=== PATIENT | female | born 1940 | race American Indian/Alaskan Native ===

== ENCOUNTER 2018-05-16 10:06 | Observation (INO) | payer MEDICARE, OTHER ==
[2018-05-16 10:08] VITALS: BMI 26.6
--- NOTE | 2018-05-16 10:42 | ED PDOC ---
Arrival/HPI - General Chief Complaint: Chest Pain Time Seen by Provider: 05/16/18 10:17 Historian: Patient - History of Present Illness Narrative History of Present Illness (Text): 05/16/18 10:35 77 year old female, whose past medical history includes hypertension, hyperlipidemia, atrial fibrillation on Eliquis, heart murmur, and CABG 10 years ago, presents to the emergency department complaining non-radiating right sided chest pain since this morning. Patient reports 3 episodes of mild chest discomfort which lasted a few seconds at a time and resolved spontaneously. Patient notes she has not taken any of her medications today. She currently denies any pain at this time. Patient denies any fever, chills, sore throat, cough, shortness of breath, nausea, vomiting, diarrhea, abdominal pain, headache , dizziness, weakness, numbness or any other complaints. PMD: Dr. Quach Rn Documentation: Dr. James Time/Duration: Other (this morning) Symptom Course: Other (Currently asymptomatic) Context: Home Past Medical History - Provider Review Nursing Documentation Reviewed: Yes - Infectious Disease Hx of Infectious Diseases: None - Cardiac Hx Atrial Fibrillation: Yes Hx Hypertension: Yes Hx Pacemaker: No Other/Comment: open heart surgery - Neurological Hx Paralysis: No - Endocrine/Metabolic Hx Hypothyroidism: Yes - Hematological/Oncological Hx Blood Transfusions: Yes (2009) Hx Blood Transfusion Reaction: No - Musculoskeletal/Rheumatological Hx Falls: Yes - Psychiatric Hx Emotional Abuse: No Hx Physical Abuse: No Hx Substance Use: No - Surgical History Hx Open Heart Surgery: Yes - Anesthesia Hx Anesthesia: Yes Hx Anesthesia Reactions: No Hx Malignant Hyperthermia: No - Suicidal Assessment Feels Threatened In Home Enviroment: No Family/Social History - Physician Review Nursing Documentation Reviewed: Yes Family/Social History: Unknown Family HX Smoking Status: Never Smoked Hx Alcohol Use: No Hx Substance Use: No Allergies/Home Meds Allergies/Adverse Reactions: Allergies No Known Allergies Allergy (Verified 05/16/18 13:18) Home Medications: Home Meds Medication Instructions Recorded Confirmed Levothyroxine Sodium 75 mcg PO DAILY 08/13/12 05/16/18 [Levothyroxine] Atorvastatin [Lipitor] 80 mg PO DAILY 08/07/14 05/16/18 Apixaban [Eliquis] 1 tab PO BID 12/30/15 05/16/18 Diltiazem HCl [Diltiazem 24Hr ER] 180 mg PO DAILY 12/04/16 05/16/18 hydroCHLOROthiazide [Microzide] 12.5 mg PO DAILY 12/04/16 05/16/18 Review of Systems - Physician Review All systems were reviewed & negative as marked: Yes - Review of Systems Constitutional: absent: Fevers, Night Sweats ENT: absent: Sore Throat Respiratory: absent: SOB, Cough Cardiovascular: Chest Pain (Right side chest pain ) Gastrointestinal: absent: Abdominal Pain, Diarrhea, Nausea, Vomiting Genitourinary Female: absent: Urine Output Changes Neurological: absent: Headache, Dizziness, Focal Weakness Physical Exam Vital Signs Reviewed: Yes Vital Signs Temp Pulse Resp BP Pulse Ox 05/16/18 13:42 78 18 143/89 97 05/16/18 10:34 74 18 134/78 97 05/16/18 10:10 97.7 F 82 18 163/80 H 96 Temperature: Afebrile Blood Pressure: Normal Pulse: Regular Respiratory Rate: Normal Appearance: Positive for: Well-Appearing, Non-Toxic, Comfortable Pain Distress: None Mental Status: Positive for: Alert and Oriented X 3 - Systems Exam Head: Present: Atraumatic, Normocephalic Pupils: Present: PERRL Extroacular Muscles: Present: EOMI Conjunctiva: Present: Normal Mouth: Present: Moist Mucous Membranes Neck: Present: Normal Range of Motion Respiratory/Chest: Present: Clear to Auscultation, Good Air Exchange. No: Respiratory Distress, Accessory Muscle Use Cardiovascular: Present: Regular Rate and Rhythm, Normal S1, S2. No: Murmurs Abdomen: Present: Normal Bowel Sounds. No: Tenderness, Distention, Peritoneal Signs Back: Present: Normal Inspection Upper Extremity: Present: Normal Inspection. No: Cyanosis, Edema Lower Extremity: Present: Normal Inspection. No: Edema Neurological: Present: GCS=15, CN II-XII Intact, Speech Normal Skin: Present: Warm, Dry, Normal Color. No: Rashes Psychiatric: Present: Alert, Oriented x 3, Normal Insight, Normal Concentration Medical Decision Making ED Course and Treatment: 05/16/18 10:38 Impression: 77 year old female with right chest pain. Differential Diagnoses: Chest pain rule out ACS Plan: -- EKG -- Labs -- CBC -- Chest X-Ray -- Aspirin -- Reassess and disposition Progress Notes: 05/16/18 10:41 EKG shows atrial fibrillation at 70 BPM with left ventricular hypertrophy. No previous to compare. Interpreted by me. Report Date : 05/16/2018 10:59:28 Procedure: Chest xray Dictator : Malik Esparza MD IMPRESSION: No active disease. Patient's labs reviewed. Troponin negative. Case discussed with Dr. Marin who admits for Dr. Quach. Patient is comfortable with no chest pain. Will place on telemetry observation for chest pain r/o ACS. 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 - Lab Interpretations Lab Results: 05/16/18 10:40 05/16/18 10:40 Lab Results 05/16/18 10:40: Sodium 145, Potassium 4.2, Chloride 106, Carbon Dioxide 28, Anion Gap 16, BUN 30 H, Creatinine 1.9 H, Est GFR ( Amer) 31, Est GFR ( Non-Af Amer) 26, Random Glucose 117 H, Calcium 10.0, Magnesium 2.0, Total Bilirubin 0.4, AST 22, ALT 22, Alkaline Phosphatase 80, Lactate Dehydrogenase 444, Total Creatine Kinase 79, Troponin I < 0.01, Total Protein 8.0, Albumin 4.6 , Globulin 3.4, Albumin/Globulin Ratio 1.4 05/16/18 10:40: PT 16.3 H, INR 1.41 H, APTT 50.0 H 05/16/18 10:40: WBC 4.4 L, RBC 3.77, Hgb 10.3 L, Hct 31.6 L, MCV 83.8, MCH 27.3 , MCHC 32.6, RDW 15.0 H, Plt Count 214, MPV 9.6, Gran % 56.1, Lymph % (Auto) 37.5 H, Kane % (Auto) 5.9, Eos % (Auto) 0.5 L, Baso % (Auto) 0.0, Gran # 2.45, Lymph # (Auto) 1.6, Kane # (Auto) 0.3, Eos # (Auto) 0.0, Baso # (Auto) 0.00 I have reviewed the lab results: Yes - RAD Interpretation Radiology Orders: 05/16/18 10:37 CHEST PORTABLE [RAD] Stat - Medication Orders Current Medication Orders: Apixaban (Eliquis) 2.5 mg PO BID [facility] PRN Reason: Protocol Aspirin (Ecotrin) 81 mg PO DAILY [facility] Atorvastatin Calcium (Lipitor) 80 mg PO DIN [facility] Levothyroxine Sodium (Synthroid) 75 mcg PO DAILY [facility] Diltiazem Hcl [ Diltiazem 24hr Er] 180 Mg 180 mg PO DAILY [facility] Discontinued Medications Apixaban (Eliquis) 1 mg PO BID [facility] PRN Reason: Protocol Aspirin (Aspirin Chewable) 162 mg PO STAT STA Stop: 05/16/18 10:38 Last Admin: 05/16/18 11:30 Dose: 162 mg Diltiazem HCl (Cardizem Cd) 180 mg PO DAILY [facility] Non-Formulary Medication (Diltiazem Hcl [Diltiazem 24hr Er]) 180 mg PO DAILY [facility] Non-Formulary Medication (Diltiazem Hcl [Diltiazem 24hr Er]) 180 mg PO DAILY [facility] Diltiazem Hcl [ Diltiazem 24hr Er] 180 Mg 180 mg PO DAILY [facility] Non-Formulary Medication (Diltiazem Hcl [Diltiazem 24hr Er]) 180 mg PO DAILY [facility] Pneumococcal Polyvalent Vaccine (Pneumovax 23 Vaccine) 0.5 ml IM .ONCE ONE Stop: 05/16/18 14:39 Last Admin: 05/16/18 15:17 Dose: MAR Immunization Data Document 05/16/18 15:17 ML (Rec: 05/16/18 15:18 ML [id number]) Immunization Data Vaccine Information Sheet Given No Immunization Registry Document 05/16/18 15:17 ML (Rec: 05/16/18 15:18 ML [id number]) Immunization Registry Consent Date 05/16/18 - Scribe Statement The provider has reviewed the documentation as recorded by the [facility] training under Cathy Jauregui All medical record entries made by the Darynibdimitris were at my direction and personally dictated by me. I have reviewed the chart and agree that the record accurately reflects my personal performance of the history, physical exam, medical decision making, and the department course for this patient. I have also personally directed, reviewed, and agree with the discharge instructions and disposition. Disposition/Present on Arrival - Present on Arrival Any Indicators Present on Arrival: No History of DVT/PE: No History of Uncontrolled Diabetes: No Urinary Catheter: No History of Decub. Ulcer: No History Surgical Site Infection Following: None - Disposition Have Diagnosis and Disposition been Completed?: Yes Diagnosis: Chest pain Disposition: HOSPITALIZED Disposition Time: 12:49 Patient Plan: Observation Condition: FAIR
[2018-05-16 10:55] LABS: EOS % 0.5 % (1.5-5.0); GRAN # 2.45 (1.4-6.5); GRAN % 56.1 % (50.0-68.0); HEMOGLOBIN 10.3 g/dL (12.0-16.0); LYMPH # 1.6 (1.2-3.4); LYMPH % 37.5 % (22.0-35.0); MEAN CELL VOLUME 83.8 fl (80.0-105.0); MEAN CORPUSCULAR HEMOGLOBIN 27.3 pg (25.0-35.0); MEAN CORPUSCULAR HGB CONC 32.6 g/dl (31.0-37.0); MEAN PLATELET VOLUME 9.6 fl (7.0-11.0); MONO # 0.3 (0.1-0.6); MONO % 5.9 % (1.0-6.0); RBC 3.77 10^6/uL (3.5-6.1); WHITE BLOOD COUNT 4.4 10^3/ul (4.5-11.0)
[2018-05-16 11:01] LABS: ALB/GLOB RATIO 1.4 (1.1-1.8); ALBUMIN 4.6 g/dL (3.0-4.8); ALT/SGPT 22 U/L (7-56); AST/SGOT 22 U/L (14-36); BLOOD UREA NITROGEN 30 mg/dL (7-21); GFR AFRICAN-AMERICAN 31; GFR NON-AFRICAN AMERICAN 26
--- NOTE | 2018-05-16 11:01 | RAD ---
Date of service: 05/16/2018 HISTORY: chest pain COMPARISON: 08/13/2012 FINDINGS: LUNGS: No active pulmonary disease. PLEURA: No significant pleural effusion identified, no pneumothorax apparent. CARDIOVASCULAR: Normal. OSSEOUS STRUCTURES: Sternal wires. Mitral valve VISUALIZED UPPER ABDOMEN: Normal. OTHER FINDINGS: None. IMPRESSION: No active disease.
[2018-05-16 11:03] LABS: INR 1.41 (0.93-1.08); PROTHROMBIN TIME 16.3 SECONDS (9.4-12.5)
[2018-05-16 11:12] LABS: TROPONIN I < 0.01 ng/mL
[2018-05-16] MEDS ORDERED: Pneumococcal 23-Valent Vaccine IM ONE (14:38)
--- NOTE | 2018-05-16 14:40 | CP.PCM.HP ---
<Daniel Chávez - Last Filed: 05/16/18 14:26> History of Present Illness - History of Present Illness History of Present Illness: Subjective: CBC: Chest Discomfort HPI: Patient is a 77 year old female with a past medical history of CAD s/p CABG, hypertension, hyperlipidemia, hypothyrodism, and pulmonary hypertension who presented to the emergency room for evaluation and treatment of chest discomfort which began this morning with no specific provoking event. The chest discomfort originated and remained localized in the right parasternal region. Characterized the symptom has a pressure which remits with rest and exacerbates with activity. Patient cannot quantify severity of pressure. Denies associated dizziness, shortness of breath, sweating, palpitations, and nausea. At baseline the pateint states she is able to ambulate without overt difficultly. Able to walk/shop as needed without need to rest. Further denies fever, chills, abdominal pain, vomiting, diarrhea, constipation, and urinary symptoms. 12-point review of systems negative except as indicated in the HPI Past Medical History: CAD s/p CABG, hypertension, hyperlipidemia, hypothyrodism Past Surgical History: CABG 10 years ago Allergies: NKDA Social History: denies ETOH use, tobacco abuse, and illicit drug abuse Medications: eliquis 2.5mg BID, cardizem 180mg PO daily, Levothyroxine 0.075mg daily, Atorvastatin 80mg Daily, HCTZ 12.5mg daily Primary Care Physician: Dr. Quach Pharmacy: [facility] Physical Examination: - Constitutional Appears: No Acute Distress - Head Exam Head Exam: ATRAUMATIC, NORMAL INSPECTION, NORMOCEPHALIC - Eye Exam Eye Exam: EOMI, PERRL - Respiratory Exam Respiratory Exam: Clear to Auscultation Bilateral - Cardiovascular Exam Cardiovascular Exam: Irregularly Irregular, +S1, +S2, no rubs, no gallops - GI/Abdominal Exam GI & Abdominal Exam: Normal Bowel Sounds, Soft, NTTP, no guarding, no rebound tenderness - Extremities Exam Extremities exam: Negative for: calf tenderness, joint swelling, tenderness - Neurological Exam Neurological exam: Alert, Normal Gait, Oriented x3 - Psychiatry Psychiatry Exam: normal mood, normal affect - Skin Skin Exam: Dry, Intact, skin color change noted on right 1st digit Assessment and Plan: Patient is a 77 year old female with a past medical history of CAD s/p CABG, hypertension, hyperlipidemia, and hypothyrodism who was admitted for evaluation and treatment of chest pressure. In the ED the patient was given aspirin 124mg. EKG revealed an irregularly irregular, T wave inversions in I and AVL, rhythm HR 70bpm, Qtc 421ms. CXR revealed no active disease. Chest Pressure - rule out ACS - c/w aspirin - c/w home statin - c/w home diltiazem - cardiology consulted- appreciate recommendations Atral Fibrillation - rate control with cardizem - anticoagulate with home eliquis - CHADsVAsc score- 4, correlated to 4.8% risk of stroke per year - cardiology consulted- appreciate recommendations Hx of HTN - HR trended, reviewed, and appreciated, WNL- will continue to monitor closely - BPs trended, reviewed, and appreciated, WNL- will continue to monitor closely - continue home diltiazem and HTCZ (will hold today as patient admits to taking HCTZ at home today) with holding parameters Chronic Kidney Disease - creatinine and BUN trended, reviewed, and appreciated- trending up since 2011 ; 1.2 to 1.9;, 18 to 30 - no acute intervention at this time - will continue to monitor closely Hx of HPL - lipid profile pending Hx of Hypothyroidism - continue home levothyroxine - Thyroid profile ordered and pending Prophylaxis - DVT- eliquis - GI- not indicated at this time Patient seen, case discussed with, and plan approved by attending physician, Dr. Castellano. Present on Admission - Present on Admission Any Indicators Present on Admission: No Past Patient History - Infectious Disease Hx of Infectious Diseases: None - Past Social History Smoking Status: Never Smoked - CARDIAC Hx Atrial Fibrillation: Yes Hx Hypertension: Yes Hx Pacemaker: No Other/Comment: open heart surgery - NEUROLOGICAL Hx Paralysis: No - ENDOCRINE/METABOLIC Hx Hypothyroidism: Yes - HEMATOLOGICAL/ONCOLOGICAL Hx Blood Transfusions: Yes (2009) Hx Blood Transfusion Reaction: No - MUSCULOSKELETAL/RHEUMATOLOGICAL Hx Falls: Yes - PSYCHIATRIC Hx Emotional Abuse: No Hx Physical Abuse: No Hx Substance Use: No - SURGICAL HISTORY Hx Open Heart Surgery: Yes - ANESTHESIA Hx Anesthesia: Yes Hx Anesthesia Reactions: No Hx Malignant Hyperthermia: No Meds Home Medications: Home Medication List Medication Instructions Recorded Confirmed Type Apixaban [Eliquis] 2.5 mg PO BID tab 05/17/18 Rx Aspirin [Ecotrin] 81 mg PO DAILY tabec 05/17/18 Rx diltiaZEM CD [Cardizem CD] 120 mg PO DAILY cap 05/17/18 Rx Allergies/Adverse Reactions: Allergies Allergy/AdvReac Type Severity Reaction Status Date / Time No Known Allergies Allergy Verified 05/16/18 13:18 Results - Vital Signs Recent Vital Signs: Last Vital Signs Temp 97.7 F 05/16/18 10:10 Pulse 74 05/16/18 14:00 Resp 18 05/16/18 13:42 BP 143/89 05/16/18 13:42 Pulse Ox 97 05/16/18 13:42 - Labs Result Diagrams: 05/16/18 10:40 05/16/18 10:40 <Maurice Castellano - Last Filed: 05/17/18 14:12> Results - Vital Signs Recent Vital Signs: Last Vital Signs Temp 99.6 F 05/17/18 06:00 Pulse 74 05/17/18 09:46 Resp 20 05/17/18 06:00 BP 126/63 05/17/18 09:46 Pulse Ox 100 05/17/18 06:00 - Labs Result Diagrams: 05/17/18 06:00 05/17/18 06:00 Labs: Laboratory Results - last 24 hr 05/16/18 05/16/18 05/16/18 16:11 16:11 16:11 WBC RBC Hgb Hct MCV MCH MCHC RDW Plt Count MPV Gran % Lymph % (Auto) Pender % (Auto) Eos % (Auto) Baso % (Auto) Gran # Lymph # (Auto) Pender # (Auto) Eos # (Auto) Baso # (Auto) Sodium Potassium Chloride Carbon Dioxide Anion Gap BUN Creatinine Est GFR ( Amer) Est GFR (Non-Af Amer) Random Glucose Hemoglobin A1c 6.2 Calcium Phosphorus Magnesium Total Bilirubin AST ALT Alkaline Phosphatase Troponin I < 0.01 Total Protein Albumin Globulin Albumin/Globulin Ratio Triglycerides 76 Cholesterol 192 LDL Cholesterol Direct 93 HDL Cholesterol 63 H Free T4 1.15 TSH 3rd Generation 1.86 05/16/18 05/17/18 05/17/18 23:45 06:00 06:00 WBC 5.2 RBC 3.67 Hgb 9.8 L Hct 30.5 L MCV 83.1 MCH 26.7 MCHC 32.1 RDW 15.0 H Plt Count 218 MPV 9.3 Gran % 53.6 Lymph % (Auto) 41.2 H Pender % (Auto) 4.8 Eos % (Auto) 0.4 L Baso % (Auto) 0.0 Gran # 2.80 Lymph # (Auto) 2.2 Pender # (Auto) 0.3 Eos # (Auto) 0.0 Baso # (Auto) 0.00 Sodium 141 Potassium 4.1 Chloride 104 Carbon Dioxide 25 Anion Gap 16 BUN 34 H Creatinine 1.8 H Est GFR ( Amer) 33 Est GFR (Non-Af Amer) 27 Random Glucose 107 Hemoglobin A1c Calcium 9.7 Phosphorus 3.9 Magnesium 1.9 Total Bilirubin 0.4 AST 22 ALT 18 Alkaline Phosphatase 74 Troponin I < 0.01 Total Protein 7.7 Albumin 4.2 Globulin 3.6 Albumin/Globulin Ratio 1.2 Triglycerides Cholesterol LDL Cholesterol Direct HDL Cholesterol Free T4 TSH 3rd Generation Attending/Attestation - Attestation I have personally seen and examined this patient.: Yes I have fully participated in the care of the patient.: Yes I have reviewed all pertinent clinical information: Yes Notes (Text): 05/17/18 14:08 Attending note ; Patient seen and examined with resident . Patient is a 77 year old female with a past medical history of CAD s/p CABG, hypertension, hyperlipidemia, atrial fibrillation and hypothyroidism is admitted with chest pain. EKG shows atrial fibrillation with rate controlled nonspecific ST-T changes. Cardiac enzymes 1 negative. Currently patient is pain-free. Continue aspirin, Lipitor, Cardizem. Patient is on Eliquis for atrial fibrillation. Cardiac enzymes 3 ordered. Cardiology evaluation with Dr. James requested. Chronic kidney disease; creatinine is 1.9. Last creatinine 2017 was 1.8. Needs outpatient nephrology follow-up. Monitor patient closely. Upon discharge the patient will follow up with PMD . 05/17/18 14:12
[2018-05-16] MEDS ORDERED: DILTIAZEM HCL 180 MG PO SCH ×3 (15:00→15:35)
[2018-05-16] MEDS: Levothyroxine 75 MCG TAB PO SCH (16:17)
[2018-05-16 16:34] LABS: HDL CHOLESTEROL 63 mg/dL (29-60)
[2018-05-16 16:41] LABS: TROPONIN I < 0.01 ng/mL
[2018-05-16 16:44] LABS: LDL CHOLESTEROL 93 mg/dL (0-129)
[2018-05-16 17:18] LABS: FREE T4 1.15 ng/dL (0.78-2.19)
--- NOTE | 2018-05-16 19:23 | CARD ---
APPROVED REPORT Date of service: 05/16/2018 EKG Measurement Heart [id number] <Conclusion> A Fib. Left ventricular hypertrophy with repolarization abnormality Abnormal ECG
[2018-05-17 03:13] VITALS: RESP 20
--- NOTE | 2018-05-17 06:06 | CP.PCM.PN ---
Subjective - Date & Time of Evaluation Date of Evaluation: 05/17/18 Time of Evaluation: 05:53 - Subjective Subjective: Singh Siegel PGY1 -- Fishing [employer] Winding [employer] -- Medicine Progress Note Patient was evaluated at bedside this morning. Per nurse report, the patient was observed to be sleeping last night and was in no distress. Objective - Vital Signs/Intake and Output Vital Signs (last 24 hours): Temp Pulse Resp BP Pulse Ox 98.1 F 50 L 20 150/82 98 05/17/18 00:01 05/17/18 02:00 05/17/18 00:01 05/17/18 00:01 05/17/18 00:01 Intake and Output: 05/16/18 05/17/18 18:59 06:59 Intake Total 800 Output Total 740 Balance 60 - Medications Medications: Current Medications Apixaban (Eliquis) 2.5 mg PO BID [facility] PRN Reason: Protocol Last Admin: 05/16/18 17:05 Dose: 2.5 mg Aspirin (Ecotrin) 81 mg PO DAILY [facility] Atorvastatin Calcium (Lipitor) 80 mg PO DIN [facility] Last Admin: 05/16/18 16:17 Dose: 80 mg Levothyroxine Sodium (Synthroid) 75 mcg PO DAILY [facility] Last Admin: 05/16/18 16:17 Dose: 75 mcg Diltiazem Hcl [ Diltiazem 24hr Er] 180 Mg 180 mg PO DAILY [facility] Last Admin: 05/16/18 17:06 Dose: Not Given - Labs Labs: PT 16.3 SECONDS (9.4-12.5) H 05/16/18 10:40 INR 1.41 (0.93-1.08) H 05/16/18 10:40 APTT 50.0 Seconds (25.1-36.5) H 05/16/18 10:40 Assessment and Plan - Assessment and Plan (Free Text) Assessment: Patient is a 77-year-old female with a past medical history of coronary arterial disease status post CABG, hypertension, hyperlipidemia, and hypothyrodism who was admitted for evaluation and treatment of chest pressure. In the ED the patient was given aspirin 124mg. EKG revealed an irregularly irregular, T wave inversions in I and AVL, rhythm HR 70bpm, Qtc 421ms. CXR revealed no active disease. Chest Pressure - Rule out ACS - Trops negative x3 - Continue with aspirin - Continue with home statin - Continue home diltiazem - Cardiology consulted, appreciate recommendations Atrial Fibrillation - Rate control with cardizem - Anticoagulate with home eliquis - CHADsVAsc score- 4, correlated to 4.8% risk of stroke per year - Cardiology consulted- appreciate recommendations History of Hypertension - HR trended, reviewed, and appreciated, WNL- will continue to monitor closely - BPs trended, reviewed, and appreciated, WNL- will continue to monitor closely - Continue home diltiazem and HTCZ, with holding parameters Chronic Kidney Disease - Creatinine and BUN trended, reviewed, and appreciated- trending up since 2011 ; 1.2 to 1.9;, 18 to 30 - No acute intervention at this time - Will continue to monitor closely History of Hyperlipidemia - Lipid profile pending Hx of Hypothyroidism - Continue home levothyroxine - Thyroid 1.15 TSH 1.86 Prophylaxis - DVT- eliquis - GI- not indicated at this time Patient seen, case discussed with, and plan approved by Attending Physician, Dr. Castellano.
[2018-05-17 06:34] VITALS: TEMP 99.6; O2SAT 100
[2018-05-17 06:51] LABS: EOS % 0.4 % (1.5-5.0); GRAN # 2.8 (1.4-6.5); GRAN % 53.6 % (50.0-68.0); HEMOGLOBIN 9.8 g/dL (12.0-16.0); LYMPH # 2.2 (1.2-3.4); LYMPH % 41.2 % (22.0-35.0); MEAN CELL VOLUME 83.1 fl (80.0-105.0); MEAN CORPUSCULAR HEMOGLOBIN 26.7 pg (25.0-35.0); MEAN CORPUSCULAR HGB CONC 32.1 g/dl (31.0-37.0); MEAN PLATELET VOLUME 9.3 fl (7.0-11.0); MONO # 0.3 (0.1-0.6); MONO % 4.8 % (1.0-6.0); RBC 3.67 10^6/uL (3.5-6.1); WHITE BLOOD COUNT 5.2 10^3/ul (4.5-11.0)
[2018-05-17 07:07] LABS: ALB/GLOB RATIO 1.2 (1.1-1.8); ALBUMIN 4.2 g/dL (3.0-4.8); CALCIUM 9.7 mg/dL (8.4-10.5)
[2018-05-17] MEDS: Levothyroxine 75 MCG TAB PO SCH (09:47)
[2018-05-17 09:49] VITALS: BP 126/63; PULSE 74
--- NOTE | 2018-05-17 09:51 | CON ---
DATE: 05/17/2018 CARDIOLOGY CONSULTATION HISTORY: The patient is a 77-year-old woman with remote history of coronary artery bypass surgery who underwent cardiac catheterization last year, which showed an occluded vein graft to the RCA. She presents with chest pain, which is transient and atypical. It is completely resolved. The patient's past medical history includes hypertension, hypercholesterolemia and chronic atrial fibrillation, treated with Eliquis. Currently, the patient is asymptomatic, feeling well, ambulating and without symptoms. SOCIAL HISTORY: The patient does not smoke. REVIEW OF SYSTEMS: A 14-point review of systems is all negative. PHYSICAL EXAMINATION: VITAL SIGNS: Stable. Telemetry monitoring shows atrial fibrillation with some pauses up to 2.27 seconds, which is asymptomatic. NECK: Negative JVD. LUNGS: Without rales. HEART: Reveals S1, S2. EXTREMITIES: Without edema. EKG shows no acute changes. LABORATORY DATA: Troponins are negative. IMPRESSION: 1. Atypical chest pain. 2. No evidence for acute coronary syndrome. 3. History of coronary artery bypass surgery. 4. Multivessel coronary artery disease. 5. Chronic atrial fibrillation. 6. Occasional pauses. PLAN: Given these findings, we will decrease her Cardizem dose to 120 daily. We will resume her Eliquis. From a cardiac perspective, the patient can be discharged. We will arrange for an outpatient stress test. Luis James MD
[2018-05-17] MEDS ORDERED: DILTIAZEM HCL 180 MG PO SCH ×3 (10:00)
[2018-05-17] MEDS ORDERED: diltiaZEM 180 mg/24 Hours CD Cap PO SCH (10:00)
[2018-05-17] MEDS ORDERED: diltiaZEM 120 mg/24 Hours CD Cap PO SCH (10:00)
--- NOTE | 2018-05-17 14:37 | CP.PCM.DIS ---
<Singh Siegel - Last Filed: 05/17/18 15:30> Provider - Provider Date of Admission: 05/16/18 12:49 Attending physician: Maurice Castellano MD Primary care physician: Robyn Quach MD Consults: Cardiology: Dr. James Time Spent in preparation of Discharge (in minutes): 45 Diagnosis - Discharge Diagnosis (1) Chest pain Status: Acute Priority: Medium Hospital Course - Lab Results Lab Results: Most Recent Lab Values WBC 5.2 10^3/ul (4.5-11.0) 05/17/18 06:00 RBC 3.67 10^6/uL (3.5-6.1) 05/17/18 06:00 Hgb 9.8 g/dL (12.0-16.0) L 05/17/18 06:00 Hct 30.5 % (36.0-48.0) L 05/17/18 06:00 MCV 83.1 fl (80.0-105.0) 05/17/18 06:00 MCH 26.7 pg (25.0-35.0) 05/17/18 06:00 MCHC 32.1 g/dl (31.0-37.0) 05/17/18 06:00 RDW 15.0 % (11.5-14.5) H 05/17/18 06:00 Plt Count 218 10^3/uL (120.0-450.0) 05/17/18 06:00 MPV 9.3 fl (7.0-11.0) 05/17/18 06:00 Gran % 53.6 % (50.0-68.0) 05/17/18 06:00 Lymph % (Auto) 41.2 % (22.0-35.0) H 05/17/18 06:00 [place] % (Auto) 4.8 % (1.0-6.0) 05/17/18 06:00 Eos % (Auto) 0.4 % (1.5-5.0) L 05/17/18 06:00 Baso % (Auto) 0.0 % (0.0-3.0) 05/17/18 06:00 Gran # 2.80 (1.4-6.5) 05/17/18 06:00 Lymph # (Auto) 2.2 (1.2-3.4) 05/17/18 06:00 [place] # (Auto) 0.3 (0.1-0.6) 05/17/18 06:00 Eos # (Auto) 0.0 (0.0-0.7) 05/17/18 06:00 Baso # (Auto) 0.00 K/mm3 (0.0-2.0) 05/17/18 06:00 PT 16.3 SECONDS (9.4-12.5) H 05/16/18 10:40 INR 1.41 (0.93-1.08) H 05/16/18 10:40 APTT 50.0 Seconds (25.1-36.5) H 05/16/18 10:40 Sodium 141 mmol/L (132-148) 05/17/18 06:00 Potassium 4.1 mmol/L (3.6-5.0) 05/17/18 06:00 Chloride 104 mmol/L (98-107) 05/17/18 06:00 Carbon Dioxide 25 mmol/L (21-33) 05/17/18 06:00 Anion Gap 16 (10-20) 05/17/18 06:00 BUN 34 mg/dL (7-21) H 05/17/18 06:00 Creatinine 1.8 mg/dl (0.7-1.2) H 05/17/18 06:00 Est GFR ( Amer) 33 05/17/18 06:00 Est GFR (Non-Af Amer) 27 05/17/18 06:00 Random Glucose 107 mg/dL (70-110) 05/17/18 06:00 Hemoglobin A1c 6.2 % (4.2-6.5) 05/16/18 16:11 Calcium 9.7 mg/dL (8.4-10.5) 05/17/18 06:00 Phosphorus 3.9 mg/dL (2.5-4.5) 05/17/18 06:00 Magnesium 1.9 mg/dL (1.7-2.2) 05/17/18 06:00 Total Bilirubin 0.4 mg/dL (0.2-1.3) 05/17/18 06:00 AST 22 U/L (14-36) 05/17/18 06:00 ALT 18 U/L (7-56) 05/17/18 06:00 Alkaline Phosphatase 74 U/L (38-126) 05/17/18 06:00 Lactate Dehydrogenase 444 U/L (333-699) 05/16/18 10:40 Total Creatine Kinase 79 U/L (35-230) 05/16/18 10:40 Troponin I < 0.01 ng/mL 05/16/18 23:45 Total Protein 7.7 g/dL (5.8-8.3) 05/17/18 06:00 Albumin 4.2 g/dL (3.0-4.8) 05/17/18 06:00 Globulin 3.6 gm/dL 05/17/18 06:00 Albumin/Globulin Ratio 1.2 (1.1-1.8) 05/17/18 06:00 Triglycerides 76 mg/dL (35-160) 05/16/18 16:11 Cholesterol 192 mg/dL (130-200) 05/16/18 16:11 LDL Cholesterol Direct 93 mg/dL (0-129) 05/16/18 16:11 HDL Cholesterol 63 mg/dL (29-60) H 05/16/18 16:11 Free T4 1.15 ng/dL (0.78-2.19) 05/16/18 16:11 TSH 3rd Generation 1.86 mIU/mL (0.46-4.68) 05/16/18 16:11 - Hospital Course Hospital Course: Singh Siegel PGY1 -- Discharge Summary Hospital Course 77-year-old female with a past medical history of coronary arterial disease status post CABG, hypertension, hyperlipidemia, chronic kidney disease, hypothyrodism who presented to [facility] Emergency Department on with chest pressure. While in the emergency department, the patient was given aspirin 124mg. EKG was obtained and revealed an irregularly irregular rhythm with T wave inversions in I and AVL, HR 70bpm, Qtc 421ms. Chest x-ray was obtained; per report it revealed no active disease. Patient was subsequently admitted to telemetry for acute coronary syndrome rule-out. On the following morning, troponins were trended and were found to be within normal limits x3. The patient's CHADsVAsc Score was 4, which correlated to 4.8% risk of stroke per year. The patient's vitals were monitored, trended, and were within normal limits. Patient's heart rate was controlled with cardizem, and the patient was anticoagulated with home dose Eliquis. Cardiology was consulted , and recommended to decrease patient's home dose of cardizem down to 120mg daily. Per Cardiology report, the patient will be scheduled for an out-patient stress test. The patient denied chest pressure, shortness of breath, abdominal pain, palpitations, and/or dizziness. The patient also has a history of CKD. Creatinine and BUN were trending up since the patient's last visit in 2011. Patient also has history of hypothyroidism. Thyroid stimulating hormone was obtained and measured 1.86, and Thyroid hormone measured 1.15 The patient was continued on home levothyroxine. The patient has a history of HTN and was restarted on home-meds. On day 3, the patient was asymptomatic and hemodynamically stable. Patient was instructed to follow up with Cardiology as outpatient for a stress test, per cardiology recommendation. Patient agreed, and the patient was subsequently discharged to home in stable condition. Discharge Medications: Apixaban 2.5mg PO BID - Rx Aspirin 81mg PO Daily - Rx Cardizem 120mg PO Daily - Rx Microzide 12.5mg PO Daily Levothyroxine 75mcg PO Daily Patient seen, case discussed with, and plan approved by Attending Physician, Dr. Nona Siegel PGY1 - Date & Time of H&P Date of H&P: 05/16/18 Time of H&P: 14:26 Discharge Exam - Head Exam Head Exam: ATRAUMATIC, NORMAL INSPECTION, NORMOCEPHALIC - Eye Exam Eye Exam: EOMI, Normal appearance, PERRL Pupil Exam: NORMAL ACCOMODATION - ENT Exam ENT Exam: Mucous Membranes Moist - Neck Exam Neck exam: Full Rom, Normal Inspection - Respiratory Exam Respiratory Exam: NORMAL BREATHING PATTERN, UNREMARKABLE. absent: Respiratory Distress - Cardiovascular Exam Cardiovascular Exam: REGULAR RHYTHM, Systolic Murmur (harsh crescendo- decrescendo murmur appreciated along the right second intercostal space along the right sternal border. ) - GI/Abdominal Exam GI & Abdominal Exam: Normal Bowel Sounds, Soft, Unremarkable. absent: Tenderness - Extremities Exam Extremities exam: full ROM, normal inspection - Back Exam Back exam: NORMAL INSPECTION - Neurological Exam Neurological exam: Alert, CN II-XII Intact, Normal Gait, Oriented x3 - Psychiatric Exam Psychiatric exam: Normal Affect, Normal Mood - Skin Skin Exam: Dry, Intact, Normal Color, Warm Discharge Plan - Follow Up Plan Condition: FAIR Disposition: HOME/ ROUTINE Instructions: Heart Healthy Diet, Chest Pain (DC), Chest Pain (GEN) Additional Instructions: - Follow up with primary doctor in 3-5 days - Follow up with sales order coordinator, Dr. James, as scheduled for outpatient stress test - Resume home medications as prescribed - Proceed to ED if symptoms return Referrals: Robyn Quach MD [Primary Care Provider] - Luis James MD [Staff Provider] - <Maurice Castellano - Last Filed: 05/17/18 16:30> Provider - Provider Date of Admission: 05/16/18 12:49 Attending physician: Maurice Castellano MD Primary care physician: Robyn Quach MD Hospital Course - Lab Results Lab Results: Most Recent Lab Values WBC 5.2 10^3/ul (4.5-11.0) 05/17/18 06:00 RBC 3.67 10^6/uL (3.5-6.1) 05/17/18 06:00 Hgb 9.8 g/dL (12.0-16.0) L 05/17/18 06:00 Hct 30.5 % (36.0-48.0) L 05/17/18 06:00 MCV 83.1 fl (80.0-105.0) 05/17/18 06:00 MCH 26.7 pg (25.0-35.0) 05/17/18 06:00 MCHC 32.1 g/dl (31.0-37.0) 05/17/18 06:00 RDW 15.0 % (11.5-14.5) H 05/17/18 06:00 Plt Count 218 10^3/uL (120.0-450.0) 05/17/18 06:00 MPV 9.3 fl (7.0-11.0) 05/17/18 06:00 Gran % 53.6 % (50.0-68.0) 05/17/18 06:00 Lymph % (Auto) 41.2 % (22.0-35.0) H 05/17/18 06:00 [place] % (Auto) 4.8 % (1.0-6.0) 05/17/18 06:00 Eos % (Auto) 0.4 % (1.5-5.0) L 05/17/18 06:00 Baso % (Auto) 0.0 % (0.0-3.0) 05/17/18 06:00 Gran # 2.80 (1.4-6.5) 05/17/18 06:00 Lymph # (Auto) 2.2 (1.2-3.4) 05/17/18 06:00 [place] # (Auto) 0.3 (0.1-0.6) 05/17/18 06:00 Eos # (Auto) 0.0 (0.0-0.7) 05/17/18 06:00 Baso # (Auto) 0.00 K/mm3 (0.0-2.0) 05/17/18 06:00 PT 16.3 SECONDS (9.4-12.5) H 05/16/18 10:40 INR 1.41 (0.93-1.08) H 05/16/18 10:40 APTT 50.0 Seconds (25.1-36.5) H 05/16/18 10:40 Sodium 141 mmol/L (132-148) 05/17/18 06:00 Potassium 4.1 mmol/L (3.6-5.0) 05/17/18 06:00 Chloride 104 mmol/L (98-107) 05/17/18 06:00 Carbon Dioxide 25 mmol/L (21-33) 05/17/18 06:00 Anion Gap 16 (10-20) 05/17/18 06:00 BUN 34 mg/dL (7-21) H 05/17/18 06:00 Creatinine 1.8 mg/dl (0.7-1.2) H 05/17/18 06:00 Est GFR ( Amer) 33 05/17/18 06:00 Est GFR (Non-Af Amer) 27 05/17/18 06:00 Random Glucose 107 mg/dL (70-110) 05/17/18 06:00 Hemoglobin A1c 6.2 % (4.2-6.5) 05/16/18 16:11 Calcium 9.7 mg/dL (8.4-10.5) 05/17/18 06:00 Phosphorus 3.9 mg/dL (2.5-4.5) 05/17/18 06:00 Magnesium 1.9 mg/dL (1.7-2.2) 05/17/18 06:00 Total Bilirubin 0.4 mg/dL (0.2-1.3) 05/17/18 06:00 AST 22 U/L (14-36) 05/17/18 06:00 ALT 18 U/L (7-56) 05/17/18 06:00 Alkaline Phosphatase 74 U/L (38-126) 05/17/18 06:00 Lactate Dehydrogenase 444 U/L (333-699) 05/16/18 10:40 Total Creatine Kinase 79 U/L (35-230) 05/16/18 10:40 Troponin I < 0.01 ng/mL 05/16/18 23:45 Total Protein 7.7 g/dL (5.8-8.3) 05/17/18 06:00 Albumin 4.2 g/dL (3.0-4.8) 05/17/18 06:00 Globulin 3.6 gm/dL 05/17/18 06:00 Albumin/Globulin Ratio 1.2 (1.1-1.8) 05/17/18 06:00 Triglycerides 76 mg/dL (35-160) 05/16/18 16:11 Cholesterol 192 mg/dL (130-200) 05/16/18 16:11 LDL Cholesterol Direct 93 mg/dL (0-129) 05/16/18 16:11 HDL Cholesterol 63 mg/dL (29-60) H 05/16/18 16:11 Free T4 1.15 ng/dL (0.78-2.19) 05/16/18 16:11 TSH 3rd Generation 1.86 mIU/mL (0.46-4.68) 05/16/18 16:11 Attending/Attestation - Attestation I have personally seen and examined this patient.: Yes I have fully participated in the care of the patient.: Yes I have reviewed all pertinent clinical information, including history, physical exam and plan: Yes Notes (Text): 05/17/18 16:29 Attending note; Patient seen and examined with resident. patient denies any chest Pain, shortness of breath. Patient is a 77 year old female with a past medical history of CAD s/p CABG, hypertension, hyperlipidemia, atrial fibrillation and hypothyroidism is admitted with chest pain. EKG shows atrial fibrillation with rate controlled nonspecific ST-T changes. Cardiac enzymes 3 negative. Currently patient is pain-free. Continue aspirin, Lipitor, Cardizem. cardizem dosage reduced by cardiology. Patient is on Eliquis for atrial fibrillation. Cardiology evaluation with Dr. James appreciated. outpatient stress test arranged. Chronic kidney disease; creatinine is 1.8. Patient will be discharged home with close follow-up with cardiology Dr. James. Upon discharge the patient will follow up with PMD .
== END 2018-05-17 12:06 | disposition home or self-care (01) ==
LOC: ED 10:06 → ERH 12:49 → 2RNO 13:55
PROVIDERS: ADMIT Internal Medicine; ATTEND Internal Medicine
DX: R07.89 Other chest pain (principal); I12.9 Hypertensive chronic kidney disease with stage 1 through stage 4 chronic kidney disease, or unspecified chronic kidney disease; E78.00 Pure hypercholesterolemia, unspecified; I48.2 Chronic atrial fibrillation; E03.9 Hypothyroidism, unspecified; E78.5 Hyperlipidemia, unspecified; I25.10 Atherosclerotic heart disease of native coronary artery without angina pectoris; I27.20 Pulmonary hypertension, unspecified; N18.9 Chronic kidney disease, unspecified; Z79.01 Long term (current) use of anticoagulants; Z79.82 Long term (current) use of aspirin
CPT/HCPCS: 36415; 71045; 80053; 80061; 82550; 83036; 83615; 83735; 84100; 84439; 84443; 84484; 85025; 85610; 85730; 93005; 99283; G0378

== ENCOUNTER 2018-06-15 06:14 | Day surgery (SDC) | payer MEDICARE ==
[2018-06-08 10:57] VITALS: BMI 27.1
[2018-06-15] MEDS ORDERED: Lidocaine PF 2% (5 ml) Inj (For Cardiac Arrhy) ONE (06:48)
[2018-06-15] MEDS ORDERED: Iohexol 350mgl/ml 50 ML ONE (06:49)
[2018-06-15] MEDS ORDERED: Phenylephrine 10 mg/ml Inj ONE (06:49)
[2018-06-15] MEDS ORDERED: Iodixanol 320 MG/ML 200 ML BOTTLE IV ONE (06:49)
[2018-06-15] MEDS ORDERED: Iodixanol 320 MG/ML 100 ML BOTTLE IV ONE (06:49)
[2018-06-15 06:50] LABS: EOS % 0.6 % (1.5-5.0); GRAN # 2.62 (1.4-6.5); HEMOGLOBIN 10.1 g/dL (12.0-16.0); LYMPH % 40.2 % (22.0-35.0); MEAN CELL VOLUME 84.4 fl (80.0-105.0); MEAN CORPUSCULAR HEMOGLOBIN 27.2 pg (25.0-35.0); MEAN CORPUSCULAR HGB CONC 32.2 g/dl (31.0-37.0); MEAN PLATELET VOLUME 9.3 fl (7.0-11.0); MONO # 0.3 (0.1-0.6); MONO % 5.2 % (1.0-6.0); RBC 3.72 10^6/uL (3.5-6.1); RED CELL DISTRIBUTION WIDTH 15.6 % (11.5-14.5); WHITE BLOOD COUNT 4.9 10^3/ul (4.5-11.0)
[2018-06-15] MEDS ORDERED: Nitroglycerin 50mg in D5W 0 MG/0 ML BOTTLE IV ONE (06:50)
[2018-06-15 06:59] LABS: INR 1.02; PARTIAL THROMBOPLASTIN TIME 37.5 Seconds (25.1-36.5); PROTHROMBIN TIME 11.7 SECONDS (9.4-12.5)
[2018-06-15 07:06] VITALS: TEMP 98.2
[2018-06-15] MEDS ORDERED: Midazolam 2 MG/2 ML VIAL ONE ×2 (08:21→08:27)
[2018-06-15] MEDS ORDERED: Sodium Chloride 0.9% 1,000 ML IV SCH (09:15)
--- NOTE | 2018-06-15 09:39 | CARDCATH ---
Copied To: Luis James MD Attending MD: Luis James MD PROCEDURE DATE: 06/15/2018 HISTORY: The patient is a 77-year-old woman who presents with an abnormal stress test. PAST MEDICAL HISTORY: Includes history of coronary artery bypass surgery, mitral valve repair, hypertension and atrial fibrillation, treated with Eliquis. Because of this new defect in the stress test, cardiac catheterization was recommended. PROCEDURES: Left heart catheterization with coronary arteriography, left ventriculogram, saphenous vein graft angiogram, LAURENT angiogram, aortogram were performed. The right femoral artery was cannulated with a 6-Sloven[place] sheath. There were no complications. I performed moderate sedation, which included the presence of an independent trained observer that assisted in monitoring the patient's level of consciousness and physiologic status. After administration of fentanyl and Versed, my intra service time was 30 minutes. The findings on catheterization included a left ventricle that was visualized in the ROSS projection. In the ROSS projection, wall motion is within normal limits. The ejection fraction is approximately 60%. There is no mitral regurgitation. Her coronary anatomy revealed left main artery that was unremarkable. The LAD revealed diffuse atherosclerosis throughout its course with a 50% stenosis in the midportion. The diagonal vessel revealed diffuse atherosclerosis without critical lesions. The circumflex artery revealed diffuse atherosclerosis with a small obtuse marginal branch that revealed multiple 70-80% lesions. The RCA was occluded in its midportion. The saphenous vein graft to the RCA was found to be patent and provided good antegrade flow to the mid and distal RCA. The LAURENT was found to be occluded. Supra-aortic valvular injection revealed no aortic insufficiency. No other grafts were noted. Angio-Seal was used to close the femoral artery site. The patient tolerated the procedure well. In summary, the procedure revealed normal LV function with no mitral regurgitation. Occluded RCA, 50% stenosis in the mid LAD. Diffuse critical disease in a small obtuse marginal branch. Patent SVG to the RCA. Occluded LAURENT to the LAD. Given these findings, the patient's treatment will continue to be medical therapy. Each of her coronary vascular beds are perfused except for small obtuse marginal branch which is too small and too diseased to undergo angioplasty. Given these findings, we will restart her Eliquis in the morning and continue her cardiac risk reduction program. Luis James MD [facility] # [phone]
[2018-06-15 10:17] VITALS: RESP 20
[2018-06-15] MEDS ORDERED: cefTRIAXone (Rocephin) 1 gm Inj ONE (11:16)
[2018-06-15 13:49] VITALS: BP 163/58; PULSE 76; O2SAT 97
--- NOTE | 2018-06-15 23:30 | CARD ---
APPROVED REPORT Date of service: 06/15/2018 EKG Measurement Heart [id number] <Conclusion> Atrial fibrillation with slow ventricular response Voltage criteria for left ventricular hypertrophy ST & T wave abnormality, consider lateral ischemia or digitalis effect Abnormal ECG
== END 2018-06-15 14:45 | disposition home or self-care (01) ==
LOC: CATH 06:14
PROVIDERS: ATTEND Internal Medicine Cardiovascular Disease
DX: I25.10 Atherosclerotic heart disease of native coronary artery without angina pectoris (principal); T82.857A Stenosis of other cardiac prosthetic devices, implants and grafts, initial encounter; Y83.2 Surgical operation with anastomosis, bypass or graft as the cause of abnormal reaction of the patient, or of later complication, without mention of misadventure at the time of the procedure; I10 Essential (primary) hypertension; I48.91 Unspecified atrial fibrillation
CPT/HCPCS: 36415; 80048; 85025; 85610; 85730; 86850; 86900; 93005; 93459; 93567; 99152; C1760; C1769; C2629; J0696; J1644; J2250; J3010; J7030; Q9966

== ENCOUNTER 2018-06-27 01:32 | Emergency (ER) | payer MEDICARE ==
[2018-06-27 01:32] VITALS: BMI 27.1
--- NOTE | 2018-06-27 01:40 | ED PDOC ---
Arrival/HPI - General Historian: Patient - History of Present Illness Time/Duration: 4-6 hours Symptom Onset: Gradual Symptom Course: Unchanged <Beau Pace - Last Filed: 06/27/18 04:12> <[email or web address] - Last Filed: 06/27/18 04:45> - General Time Seen by Provider: 06/27/18 01:38 - History of Present Illness Narrative History of Present Illness (Text): 06/27/18 01:39 77 year old female, whose past medical history includes hypertension, hyperlipidemia, atrial fibrillation on Eliquis, heart murmur, and CABG 10 years ago, presents to the emergency department complaining of weakness and dizziness. Patient states that at 11:30 PM she was getting ready for bed when she smelled gas in her house. She called the gas company and they assured her that there was no gas leak. Patient states that after the incident she felt weak and dizzy. Patient came to the ED today to make sure that her heart is fine given her cardiac history. Patient denies any fever, chills, sore throat, cough, chest pain, nausea, vomiting, diarrhea, abdominal pain, headache, dizziness, weakness, numbness or any other complaints. PMD: Dr. [place] Salon Stylist: Dr. James (Beau Pace) Past Medical History - Provider Review Nursing Documentation Reviewed: Yes - Travel History Have you recently traveled outside [place] w/in the past 3 mons?: No - Infectious Disease Hx of Infectious Diseases: None - Cardiac Hx Pacemaker: No - Pulmonary Hx Respiratory Disorders: No - Neurological Hx Paralysis: No - HEENT Hx HEENT Disorder: No - Renal Hx Renal Disorder: No - Endocrine/Metabolic Hx Hypothyroidism: Yes - Hematological/Oncological Hx Blood Transfusions: Yes (2009) Hx Blood Transfusion Reaction: No - Integumentary Hx Dermatological Disorder: No - Musculoskeletal/Rheumatological Hx Musculoskeletal Disorders: Yes - Gastrointestinal Hx Gastrointestinal Disorders: Yes Hx Gall Bladder Disease: Yes (gallstones) - Genitourinary/Gynecological Hx Genitourinary Disorders: No - Psychiatric Hx Emotional Abuse: No Hx Physical Abuse: No Hx Substance Use: No - Surgical History Hx Coronary Artery Bypass Graft: Yes - Anesthesia Hx Anesthesia Reactions: No Hx Malignant Hyperthermia: No - Suicidal Assessment Feels Threatened In Home Enviroment: No <Beau Pace - Last Filed: 06/27/18 04:12> Family/Social History - Physician Review Nursing Documentation Reviewed: Yes Family/Social History: No Known Family HX Smoking Status: Never Smoked Hx Alcohol Use: No Hx Substance Use: No <Beau Pace - Last Filed: 06/27/18 04:12> Allergies/Home Meds <Beau Pace - Last Filed: 06/27/18 04:12> <Thelma Delgado - Last Filed: 06/27/18 04:45> Allergies/Adverse Reactions: Allergies No Known Allergies Allergy (Verified 05/16/18 13:18) Home Medications: Home Meds Medication Instructions Recorded Confirmed Levothyroxine Sodium 75 mcg PO DAILY 08/13/12 06/27/18 Atorvastatin [Lipitor] 80 mg PO DAILY 08/07/14 06/27/18 hydroCHLOROthiazide [Microzide] 12.5 mg PO DAILY 12/04/16 06/27/18 Review of Systems - Physician Review All systems were reviewed & negative as marked: Yes - Review of Systems Constitutional: Fatigue. absent: Fevers, Night Sweats Eyes: Normal. absent: Vision Changes ENT: Normal Respiratory: SOB. absent: Cough, Wheezing Cardiovascular: Normal. absent: Chest Pain, Palpitations, Calf Pain Gastrointestinal: Normal. absent: Abdominal Pain, Constipation, Diarrhea, Nausea, Vomiting Genitourinary Female: Normal. absent: Dysuria, Frequency Musculoskeletal: Normal Skin: Normal. absent: Rash Neurological: Dizziness. absent: Headache, Focal Weakness, Gait Changes, Speech Changes, Facial Droop Psychiatric: Normal. absent: Anxiety, Depression <Beau Pace - Last Filed: 06/27/18 04:12> Physical Exam Vital Signs Reviewed: Yes Temperature: Afebrile Blood Pressure: Normal Pulse: Bradycardic Respiratory Rate: Normal Appearance: Positive for: Well-Appearing, Non-Toxic, Comfortable Pain Distress: None Mental Status: Positive for: Alert and Oriented X 3 - Systems Exam Head: Present: Atraumatic, Normocephalic Pupils: Present: PERRL Extroacular Muscles: Present: EOMI Conjunctiva: Present: Normal Mouth: Present: Moist Mucous Membranes Respiratory/Chest: Present: Clear to Auscultation, Good Air Exchange. No: Respiratory Distress, Accessory Muscle Use, Wheezes, Rales, Rhonchi Cardiovascular: Present: Normal S1, S2, Bradycardic. No: Murmurs, Rub, Gallop Abdomen: Present: Normal Bowel Sounds. No: Tenderness, Distention, Peritoneal Signs Upper Extremity: Present: Normal Inspection. No: Cyanosis, Edema Lower Extremity: Present: Normal Inspection. No: Edema Neurological: Present: GCS=15, CN II-XII Intact, Speech Normal, Motor Func Grossly Intact, Normal Sensory Function, Gait Normal Skin: Present: Warm, Dry, Normal Color. No: Rashes Psychiatric: Present: Alert, Oriented x 3, Normal Insight, Normal Concentration <Beau Pace - Last Filed: 06/27/18 04:12> Vital Signs Temp Pulse Resp BP Pulse Ox 06/27/18 04:07 61 18 137/68 100 06/27/18 01:51 98.8 F 54 L 18 146/59 L 97 Medical Decision Making <Beau Pace - Last Filed: 06/27/18 04:12> - Lab Interpretations I have reviewed the lab results: Yes - EKG Interpretation Interpreted by ED Physician: Yes Type: 12 lead EKG <Thelma Delgado - Last Filed: 06/27/18 04:45> ED Course and Treatment: 06/27/18 02:04 Impression: Patient is a 77 year old female presenting to the ED with weakness and dizziness. Differential Diagnosis included but are not limited to: - Dehydration - BPPV Plan: -- EKG -- CBC -- CMP -- Troponin Progress Notes: 06/27/18 03:16 - Troponin: <0.01 - EKG: Junctional rhythm, rate: 54 bpm 06/27/18 03:46 - Patient reassessed, patient states she no longer feels dizzy. She feels tired and sleepy. Patient advised to be admitted for observation for her bradycardia and weakness. Patient wants to go home instead. Patient was given instructions and understands to return to the emergency room for worsening or newly concerning symptoms. Patient has a follow up appointment with her edge inker uppers, Dr. James. Patient is stable for discharge. (Beau Pace) Patient Seen With Resident: In agreement with resident note which contains more details about the patient. Patient was seen and evaluated with resident. Came up with plan and treatment together. 77 year old female presents complaining of weakness and dizziness that began few hours prior to arrival. Plan: -- Labs -- EKG -- Reassess and disposition. (Thelma Delgado) - Lab Interpretations Lab Results: 06/27/18 02:11 06/27/18 02:11 Lab Results 06/27/18 02:11: Sodium 146, Potassium 4.0, Chloride 109 H, Carbon Dioxide 26, Anion Gap 15, BUN 33 H, Creatinine 2.0 H, Est GFR ( Amer) 29, Est GFR ( Non-Af Amer) 24, Random Glucose 169 H, Calcium 9.3, Troponin I < 0.01 06/27/18 02:11: WBC 5.4, RBC 3.61, Hgb 10.0 L, Hct 30.6 L, MCV 84.8, MCH 27.7, MCHC 32.7, RDW 15.4 H, Plt Count 217, MPV 9.6, Gran % 66.9, Lymph % (Auto) 26.8 , [place] % (Auto) 5.9, Eos % (Auto) 0.4 L, Baso % (Auto) 0.0, Gran # 3.60, Lymph # (Auto) 1.4, [place] # (Auto) 0.3, Eos # (Auto) 0.0, Baso # (Auto) 0.00 <Beau Pace - Last Filed: 06/27/18 04:12> - PA / SPA MANAGER / Resident Statement MD/ has reviewed & agrees with the documentation as recorded. MD/ has examined the patient and agrees with the treatment plan. - Scribe Statement The provider has reviewed the documentation as recorded by the Scribe <Thelma Delgado - Last Filed: 06/27/18 04:45> - Scribe Statement Gerson Marrero Provider Scribe Attestation: All medical record entries made by the Scribe were at my direction and personally dictated by me. I have reviewed the chart and agree that the record accurately reflects my personal performance of the history, physical exam, medical decision making, and the department course for this patient. I have also personally directed, reviewed, and agree with the discharge instructions and disposition. (Thelma Delgado) Disposition/Present on Arrival - Present on Arrival Any Indicators Present on Arrival: No History of DVT/PE: No History of Uncontrolled Diabetes: No Urinary Catheter: No History of Decub. Ulcer: No History Surgical Site Infection Following: None - Disposition Have Diagnosis and Disposition been Completed?: Yes Disposition Time: 03:42 Patient Plan: Discharge <Beau Pace - Last Filed: 06/27/18 04:12> <Thelma Delgado - Last Filed: 06/27/18 04:45> - Disposition Diagnosis: Weakness, Dizziness Disposition: HOME/ ROUTINE Condition: IMPROVED Discharge Instructions (ExitCare): Weakness (ED) Additional Instructions: VERENICE FINCH, thank you for letting us take care of you today. Your provider was Thelma Delgado MD and you were treated for dizziness and weakness. The emergency medical care you received today was directed at your acute symptoms. If you were prescribed any medication, please fill it and take as directed. It may take several days for your symptoms to resolve. Return to the Emergency Department if your symptoms worsen, do not improve, or if you have any other problems. Please contact your doctor or call one of the physicians/clinics you have been referred to that are listed on the Patient Visit Information form that is included in your discharge packet. Bring any paperwork you were given at discharge with you along with any medications you are taking to your follow up visit. Our treatment cannot replace ongoing medical care by a primary care provider outside of the emergency department. Thank you for allowing the Critical access hospital team to be part of your care today. If you had an X-Ray or CT scan: A Radiologist will review the ED reading if any change in treatment is needed we will contact you. If you had a blood, urine, or wound culture: It will take several days for the results, if any change in treatment is needed we will contact you. If you had an STI test: It will take 48 hours for the results. Please call after 1 week if you have not heard back. Referrals: Robyn Quach MD [Primary Care Provider] - Follow up with primary Luis James MD [Staff Provider] - Follow up with primary
[2018-06-27 01:56] VITALS: RESP 18; TEMP 98.8
[2018-06-27 02:30] LABS: BLOOD UREA NITROGEN 33 mg/dL (7-21); CALCIUM 9.3 mg/dL (8.4-10.5); GFR NON-AFRICAN AMERICAN 24
[2018-06-27 02:37] LABS: EOS % 0.4 % (1.5-5.0); GRAN # 3.6 (1.4-6.5); GRAN % 66.9 % (50.0-68.0); LYMPH # 1.4 (1.2-3.4); LYMPH % 26.8 % (22.0-35.0); MEAN CELL VOLUME 84.8 fl (80.0-105.0); MEAN CORPUSCULAR HEMOGLOBIN 27.7 pg (25.0-35.0); MEAN CORPUSCULAR HGB CONC 32.7 g/dl (31.0-37.0); MEAN PLATELET VOLUME 9.6 fl (7.0-11.0); MONO # 0.3 (0.1-0.6); MONO % 5.9 % (1.0-6.0); RBC 3.61 10^6/uL (3.5-6.1); RED CELL DISTRIBUTION WIDTH 15.4 % (11.5-14.5); WHITE BLOOD COUNT 5.4 10^3/ul (4.5-11.0)
[2018-06-27 02:41] LABS: TROPONIN I < 0.01 ng/mL
[2018-06-27 04:10] VITALS: BP 137/68; PULSE 61; O2SAT 100
--- NOTE | 2018-06-27 22:09 | CARD ---
APPROVED REPORT Date of service: 06/27/2018 EKG Measurement Heart [id number] <Conclusion> Junctional rhythm Left ventricular hypertrophy with repolarization abnormality Abnormal ECG
== END 2018-06-27 04:07 | disposition home or self-care (01) ==
LOC: ED 01:32
DX: R53.1 Weakness (principal); R42 Dizziness and giddiness; E03.9 Hypothyroidism, unspecified; E78.5 Hyperlipidemia, unspecified; I10 Essential (primary) hypertension; I48.91 Unspecified atrial fibrillation; Z79.01 Long term (current) use of anticoagulants

== ENCOUNTER 2018-08-29 09:54 | Emergency (ER) | payer MEDICARE, OTHER ==
[2018-08-29 10:04] VITALS: RESP 18; BMI 28.3
--- NOTE | 2018-08-29 10:47 | ED PDOC ---
Arrival/HPI - General Chief Complaint: Palpitations Time Seen by Provider: 08/29/18 10:18 Historian: Patient - History of Present Illness Narrative History of Present Illness (Text): 08/29/18 10:48 78 year old female with a past medical history of A-fib on Eliquis, CAD s/p CABG, valve replacement, hypertension, hyperlipidemia, hypothyrodism, and pulmonary hypertension, presents to the Emergency department for palpitations 2 weeks. Patient states she has been having palpitations in her chest, which she has had before time to time but that for the last 2 weeks, the palpitations seem to be present in her left ear as well and states "it's like a heart beat in there". Patient reports visiting an ENT doctor for the presented symptoms, who cleaned and flushed out the left ear with mild improvement in symptoms but they persist. Patient denies any ear pain or chest pain. Patient denies headache, numbness/tingling, facial droop, vision changes, taste sensation change, recent massage/chiropractor/roller coaster/strong cough/sneeze, or any other acute neurological deficits. Patient denies any neck or back pain. Patient denies any other associated somatic complaints. PMD: Dr. Quach [employer] Machine Operator: Dr. James Time/Duration: 1 week Symptom Onset: Gradual Symptom Course: Unchanged Activities at Onset: Light Context: Home Past Medical History - Provider Review Nursing Documentation Reviewed: Yes - Infectious Disease Hx of Infectious Diseases: None - Reproductive Menopause: Yes - Cardiac Hx Pacemaker: No - Pulmonary Hx Respiratory Disorders: No - Neurological Hx Paralysis: No - HEENT Hx HEENT Disorder: No - Renal Hx Renal Disorder: No - Endocrine/Metabolic Hx Hypothyroidism: Yes - Hematological/Oncological Hx Blood Transfusions: Yes (2009) Hx Blood Transfusion Reaction: No - Integumentary Hx Dermatological Disorder: No - Musculoskeletal/Rheumatological Hx Musculoskeletal Disorders: Yes - Gastrointestinal Hx Gastrointestinal Disorders: Yes Hx Gall Bladder Disease: Yes (gallstones) - Genitourinary/Gynecological Hx Genitourinary Disorders: No - Psychiatric Hx Emotional Abuse: No Hx Physical Abuse: No Hx Substance Use: No - Surgical History Hx Coronary Artery Bypass Graft: Yes - Anesthesia Hx Anesthesia Reactions: No Hx Malignant Hyperthermia: No - Suicidal Assessment Feels Threatened In Home Enviroment: No Family/Social History - Physician Review Nursing Documentation Reviewed: Yes Family/Social History: Unknown Family HX Smoking Status: Never Smoked Hx Alcohol Use: No Hx Substance Use: No Allergies/Home Meds Allergies/Adverse Reactions: Allergies No Known Allergies Allergy (Verified 05/16/18 13:18) Home Medications: Home Meds Medication Instructions Recorded Confirmed Levothyroxine Sodium 75 mcg PO DAILY 08/13/12 06/27/18 Atorvastatin [Lipitor] 80 mg PO DAILY 08/07/14 06/27/18 hydroCHLOROthiazide [Microzide] 12.5 mg PO DAILY 12/04/16 06/27/18 Review of Systems - Physician Review All systems were reviewed & negative as marked: Yes - Review of Systems Eyes: absent: Vision Changes ENT: Other ("palpitations" in left ear ) Respiratory: absent: SOB Cardiovascular: Palpitations. absent: Chest Pain Neurological: absent: Focal Weakness, Facial Droop Physical Exam - Physical Exam Narrative Physical Exam (Text): 08/29/18 10:56 Constitutional: No acute distress. Head: Normocephalic. Atraumatic. Eyes: PERRL. ENT: Moist mucous membranes. TM normal bilaterally. Neck: Supple. No bruits. No mass. Cardiovascular: Heart murmur. Irregular rhythm. Chest: No tenderness. Respiratory: Clear to auscultation bilaterally. GI: Soft. Nontender. Nondistended. Back: No CVA tenderness. Musculoskeletal: No tenderness or swelling of extremities. Skin: No rash. Neurologic: Alert, no focal deficit. No ptosis. Vital Signs Reviewed: Yes Vital Signs Temp Pulse Resp BP Pulse Ox 08/29/18 10:03 98.0 F 70 18 147/76 97 Temperature: Afebrile Blood Pressure: Normal Pulse: Regular Respiratory Rate: Normal Appearance: Positive for: Well-Appearing, Non-Toxic, Comfortable Pain Distress: None Mental Status: Positive for: Alert and Oriented X 3 Medical Decision Making ED Course and Treatment: 08/29/18 10:15 Impression: 78 year old female presents to the Emergency department complaining of palpitations in chest and ear. Plan: -- EKG -- Reassess and disposition Prior Visits: Notes and results from previous visits were reviewed. Progress Notes: Discussed symptoms with patient at length, informed of the diagnosis of dissection but in the absence of any other symptoms, unlikely and risks of CT angio discussed with patient. Advised patient to return to the ED immediately for any developing symptoms including pain in chest/head/neck, mass, taste sensation change, facial droop, etc. - Scribe Statement The provider has reviewed the documentation as recorded by the Scribe Greer Gee. All medical record entries made by the Scribe were at my direction and personally dictated by me. I have reviewed the chart and agree that the record accurately reflects my personal performance of the history, physical exam, medical decision making, and the department course for this patient. I have also personally directed, reviewed, and agree with the discharge instructions and disposition. Disposition/Present on Arrival - Present on Arrival Any Indicators Present on Arrival: No History of DVT/PE: No History of Uncontrolled Diabetes: No Urinary Catheter: No History of Decub. Ulcer: No History Surgical Site Infection Following: None - Disposition Have Diagnosis and Disposition been Completed?: Yes Diagnosis: Palpitations Disposition: HOME/ ROUTINE Disposition Time: 11:16 Patient Plan: Discharge Condition: STABLE Discharge Instructions (ExitCare): Palpitations Referrals: Luis James MD [Staff Provider] - Follow up with primary Forms: [email or web address] ([place])
[2018-08-29 11:54] VITALS: BP 135/78; PULSE 82; TEMP 98; O2SAT 96
--- NOTE | 2018-08-29 12:55 | CARD ---
APPROVED REPORT Date of service: 08/29/2018 EKG Measurement Heart [id number] <Conclusion> Atrial Fibrillation Moderate Rate. Left ventricular hypertrophy with ST-T Changes. Abnormal ECG
== END 2018-08-29 11:30 | disposition home or self-care (01) ==
LOC: ED 09:54
DX: R00.2 Palpitations (principal); E78.5 Hyperlipidemia, unspecified; I10 Essential (primary) hypertension; I25.10 Atherosclerotic heart disease of native coronary artery without angina pectoris; Z95.1 Presence of aortocoronary bypass graft; E03.9 Hypothyroidism, unspecified; I48.91 Unspecified atrial fibrillation